=== PATIENT | female | born 1995 | race African-American/Black ===

== ENCOUNTER 2017-02-14 10:36 | Emergency (ER) | payer OTHER ==
[2017-02-14] MEDS ORDERED: SODIUM CHLORIDE 0.9% 1,000 ML IV STA (11:09)
[2017-02-14] MEDS ORDERED: ONDANSETRON 4 MG/2 ML VIAL IVP STA (11:42)
--- NOTE | 2017-02-14 11:46 | ED ---
Nausea/Vomiting/Diarrhea HPI - General Chief complaint: Nausea/Vomiting/Diarrhea Stated complaint: vomiting Time Seen by Provider: 02/14/17 11:09 Source: patient Mode of arrival: ambulatory Limitations: no limitations - History of Present Illness Initial comments: 21-year-old female patient presents to emergency department today for complaints of nausea, vomiting, and diarrhea that started around 0900 this morning. Patient states that she has vomited and has had diarrhea multiple times today. She is complaining of generalized crampy abdominal pain as well. Patient denies any hematemesis, dark, bloody, or black stools. Patient denies any chest pain, back pain, dizziness, weakness, hematuria, dysuria, urgency, or frequency to urinate. Patient denies any chance of . Denies any sick contacts. Denies any fever or chills. - Related Data Previous Rx's Medication Instructions Recorded Ondansetron Odt [Zofran Odt] 4 mg PO Q8HR PRN #10 tab 02/14/17 Allergies Allergy/AdvReac Type Severity Reaction Status Date / Time Penicillins AdvReac Anaphylaxis Verified 02/14/17 11:27 Review of Systems ROS Statement: Those systems with pertinent positive or pertinent negative responses have been documented in the HPI. ROS Other: All systems not noted in ROS Statement are negative. Past Medical History Past Medical History: No Reported History History of Any Multi-Drug Resistant Organisms: None Reported Past Surgical History: No Surgical Hx Reported Past Psychological History: No Psychological Hx Reported Smoking Status: Former smoker Past Alcohol Use History: None Reported Past Drug Use History: None Reported General Exam Limitations: no limitations General appearance: alert, in no apparent distress Eye exam: Present: normal appearance, PERRL, EOMI. Absent: scleral icterus, conjunctival injection, periorbital swelling ENT exam: Present: normal exam, mucous membranes moist Neck exam: Present: normal inspection, full ROM. Absent: tenderness, meningismus, lymphadenopathy Respiratory exam: Present: normal lung sounds bilaterally. Absent: respiratory distress, wheezes, rales, rhonchi, stridor Cardiovascular Exam: Present: regular rate, normal rhythm, normal heart sounds. Absent: systolic murmur, diastolic murmur, rubs, gallop, clicks GI/Abdominal exam: Present: soft, normal bowel sounds. Absent: distended, tenderness, guarding, rebound, rigid, organomegaly, mass, hernia Extremities exam: Present: normal inspection, full ROM, normal capillary refill. Absent: tenderness, pedal edema, joint swelling, calf tenderness Back exam: Present: normal inspection Neurological exam: Present: alert, oriented X3, CN II-XII intact Psychiatric exam: Present: normal affect, normal mood Skin exam: Present: warm, dry, intact, normal color. Absent: rash Course Vital Signs 02/14/17 02/14/17 11:01 14:43 Temperature 98.0 F 97.8 F Pulse Rate 75 72 Respiratory 17 16 Rate Blood Pressure 127/73 92/52 O2 Sat by Pulse 100 Oximetry Medical Decision Making - Medical Decision Making 21-year-old female patient presented to emergency department today for complaints of nausea, vomiting, and diarrhea that started this morning around 0900. Labs and urine were obtained and results were unremarkable. Patient did receive Zofran and some IV fluids, symptoms have improved patient does feel better. Patient will be discharged home with a prescription for Zofran. Patient instructed to increase fluids, and follow up with her primary care physician in one to 2 days. Patient verbalizes understanding and agrees to this plan. - Lab Data Result diagrams: 02/14/17 13:50 02/14/17 13:50 Lab Results 02/14/17 02/14/17 02/14/17 Range/Units 11:40 11:40 13:50 WBC 9.1 (4.0-11.0) k/uL RBC 4.72 (3.80-5.40) m/uL Hgb 12.4 (11.4-16.0) gm/dL Hct 39.7 (34.0-46.0) % MCV 84.0 (80.0-100.0) fL MCH 26.2 (25.0-35.0) pg MCHC 31.2 (31.0-37.0) g/dL RDW 13.7 (11.5-15.5) % Plt Count 276 (150-450) k/uL Sodium (137-145) mmol/L Potassium (3.5-5.1) mmol/L Chloride (98-107) mmol/L Carbon Dioxide (22-30) mmol/L Anion Gap mmol/L BUN (7-17) mg/dL Creatinine (0.52-1.04) mg/dL Est GFR (MDRD) Af Amer (>60 ml/min/1.73 sqM) Est GFR (MDRD) Non-Af (>60 ml/min/1.73 sqM) Glucose (74-99) mg/dL Calcium (8.4-10.2) mg/dL Total Bilirubin (0.2-1.3) mg/dL AST (14-36) U/L ALT (9-52) U/L Alkaline Phosphatase (38-126) U/L Total Protein (6.3-8.2) g/dL Albumin (3.5-5.0) g/dL Amylase (30-110) U/L Lipase (23-300) U/L Urine Color Yellow Urine Appearance Cloudy H (Clear) Urine pH 6.0 (5.0-8.0) Ur Specific [place] 1.032 (1.001-1.035) Urine Protein 1+ H (Negative) Urine Glucose (UA) Negative (Negative) Urine Ketones Negative (Negative) Urine Blood Moderate H (Negative) Urine Nitrite Negative (Negative) Urine Bilirubin Negative (Negative) Urine Urobilinogen <2.0 (<2.0) mg/dL Ur Leukocyte Esterase Small H (Negative) Urine RBC 15 H (0-5) /hpf Urine WBC 4 (0-5) /hpf Ur Squamous Epith Cells 16 H (0-4) /hpf Urine Bacteria Occasional H (None) /hpf Urine Mucus Few H (None) /hpf Urine HCG, Qual Not Detected (Not Detectd) 02/14/17 Range/Units 13:50 WBC (4.0-11.0) k/uL RBC (3.80-5.40) m/uL Hgb (11.4-16.0) gm/dL Hct (34.0-46.0) % MCV (80.0-100.0) fL MCH (25.0-35.0) pg MCHC (31.0-37.0) g/dL RDW (11.5-15.5) % Plt Count (150-450) k/uL Sodium 139 (137-145) mmol/L Potassium 4.8 (3.5-5.1) mmol/L Chloride 108 H (98-107) mmol/L Carbon Dioxide 20 L (22-30) mmol/L Anion Gap 11 mmol/L BUN 14 (7-17) mg/dL Creatinine 0.70 (0.52-1.04) mg/dL Est GFR (MDRD) Af Amer >60 (>60 ml/min/1.73 sqM) Est GFR (MDRD) Non-Af >60 (>60 ml/min/1.73 sqM) Glucose 81 (74-99) mg/dL Calcium 9.2 (8.4-10.2) mg/dL Total Bilirubin 0.8 (0.2-1.3) mg/dL AST 33 (14-36) U/L ALT 23 (9-52) U/L Alkaline Phosphatase 84 (38-126) U/L Total Protein 7.6 (6.3-8.2) g/dL Albumin 3.9 (3.5-5.0) g/dL Amylase 131 H (30-110) U/L Lipase 198 (23-300) U/L Urine Color Urine Appearance (Clear) Urine pH (5.0-8.0) Ur Specific [place] (1.001-1.035) Urine Protein (Negative) Urine Glucose (UA) (Negative) Urine Ketones (Negative) Urine Blood (Negative) Urine Nitrite (Negative) Urine Bilirubin (Negative) Urine Urobilinogen (<2.0) mg/dL Ur Leukocyte Esterase (Negative) Urine RBC (0-5) /hpf Urine WBC (0-5) /hpf Ur Squamous Epith Cells (0-4) /hpf Urine Bacteria (None) /hpf Urine Mucus (None) /hpf Urine HCG, Qual (Not Detectd) Disposition Clinical Impression: Gastroenteritis Disposition: HOME SELF-CARE Condition: Stable Instructions: Acute Nausea and Vomiting (ED), Acute Diarrhea (ED) Additional Instructions: Start with a clear liquid diet, advance as tolerated. Zofran as needed for nausea and vomiting. Up with primary care physician in one to days. Return for any worsening, new, or concerning symptoms. Prescriptions: Ondansetron Odt [Zofran Odt] 4 mg PO Q8HR PRN #10 tab PRN Reason: Nausea Referrals: None,Stated [Primary Care Provider] - 1-2 days Time of Disposition: 14:54
[2017-02-14 13:04] LABS: Appearance,Urine Cloudy (Clear); Bacteria,Urine Occasional /hpf; Bilirubin,Urine Negative (Negative); Glucose,Urine (UA) Negative (Negative); Ketones,Urine Negative (Negative); Leukocyte Esterase,Urine Small (Negative); Mucus,Urine Few /hpf; Nitrite,Urine Negative (Negative); Particle Count 7883; Protein,Urine 1+ (Negative); RBC,Urine 15 /hpf (0-5); Specific Gravity,Urine 1.032 (1.001-1.035); Squamous Epithelial Cell,Urine 16 /hpf (0-4); UA Billing (MACRO vs. MICRO) MICRO; Urobilinogen,Urine <2.0 mg/dL (<2.0); WBC,Urine 4 /hpf (0-5)
[2017-02-14 14:16] LABS: CH 25.7; CHCM 30.8; HCT 39.7 % (34.0-46.0); HDW 2.52; HGB 12.4 gm/dL (11.4-16.0); Hypochromasia Moderate; MCH 26.2 pg (25.0-35.0); MCHC 31.2 g/dL (31.0-37.0); Mean Platelet Volume 8.9; RBC 4.72 m/uL (3.80-5.40); RDW 13.7 % (11.5-15.5); WBC 9.1 k/uL (4.0-11.0); WBC (Perox) 9.55
[2017-02-14 14:22] LABS: ALT 23 U/L (9-52); AST 33 U/L (14-36); Alkaline Phosphatase 84 U/L (38-126); Amylase 131 U/L (30-110); Anion Gap 11 mmol/L; Blood Urea Nitrogen 14 mg/dL (7-17); Calcium 9.2 mg/dL (8.4-10.2); Carbon Dioxide 20 mmol/L (22-30); Chloride 108 mmol/L (98-107); Glucose 81 mg/dL (74-99); Non-African American GFR(MDRD) >60 (>60 ml/min/1.73 sqM); Potassium 4.8 mmol/L (3.5-5.1); Sodium 139 mmol/L (137-145); Total Bilirubin 0.8 mg/dL (0.2-1.3); Total Protein 7.6 g/dL (6.3-8.2)
[2017-02-14] MEDS ORDERED: KETOROLAC 30 MG/ML 1 ML VIAL IVP STA (14:48)
[2017-02-14 14:53] LABS: Add Differential Manual Differential
[2017-02-14 14:55] LABS: Manual Review Performed; Nucleated Red Blood Cells 0 /100 WBC (0-0); Total Cells Counted 100; Toxic Vacuolation Present
[2017-02-14 14:56] LABS: Polychromasia Present
[2017-02-14 15:17] VITALS: BP 139/60; PULSE 76; RESP 18; TEMP 98.3
== END 2017-02-14 15:39 | disposition home or self-care (01) ==
LOC: EC 10:36
DX: K52.9 Noninfective gastroenteritis and colitis, unspecified (principal); Z87.891 Personal history of nicotine dependence
CPT/HCPCS: 36415; 80053; 82150; 83690; 85025; 81001; 81025; 87086; 99284; 96374; 96375; 96361; J2405; J1885